=== PATIENT | female | born 1975 | race African-American/Black ===

== ENCOUNTER → 2016-11-17 | Outpatient (CLI) | payer OTHER ==
--- NOTE | 2016-11-17 16:16 | ECHO ---
DATE OF PROCEDURE: 11/17/2016 REFERRING PHYSICIAN: Dr. Sanchez INDICATION: Heart murmur. HEIGHT 64.5 inches WEIGHT: 230 pounds 2D MEASUREMENTS: Left atrium: 3.5 cm. Aortic root: 2.8 cm. LVOT: 1.9 cm Ventricular septum: 1.02 cm Posterior wall: 1.02 cm. Left ventricle diastole: 4.4 cm. Inferior vena cava: 1.5 cm. DOPPLER MEASUREMENTS: Aortic valve velocity: 150 cm/s. LVOT velocity: 71.4 cm/s. LVOT VTI: 15.5 cm. Very mild mitral regurgitation. Mitral E velocity: 89.4 cm/s Mitral A velocity: 68.6 cm/s Mitral deceleration time: 116 ms Mild tricuspid regurgitation. Estimated right ventricle systolic pressure 29 mmHg assuming an aortic pressure of 5 mmHg. Trace pulmonic regurgitation. Pulmonary artery systolic pressure 25 mmHg by pulmonary acceleration time method MITRAL ANNULAR TISSUE DOPPLER: E prime latera: 10.8 cm/s. DESCRIPTION: Rhythm was sinus. Image quality was fair. No pericardial effusion. This is a 2D, M-mode, color flow Doppler and pulsed wave Doppler examination including mitral annular tissue Doppler. CONCLUSIONS: 1. Normal echocardiogram Doppler. Structurally and functionally normal cardiac valve. 2. Normal LV internal dimensions and wall thickness. Normal regional LV wall motion and wall thickening. Normal LV systolic function. Left ventricular ejection fraction 60-65% by visual estimate. Normal LV diastolic function.
== END ==
LOC: M CARPUL 13:30
PROVIDERS: ATTEND Family Medicine
DX: R01.1 Cardiac murmur, unspecified (principal)